=== PATIENT | female | born 1965 | race Caucasian/White ===

== ENCOUNTER 2016-12-17 16:53 | Emergency (ER) | payer OTHER ==
[~2016-12-17] VITALS: Ht 154.9 cm; Wt 48.0 kg
[~2016-12-17 16:53] MED LIST: BACTRIM DS1 TAB PO; DOXYCYCL HYC100 MG PO; FLUOXETINE10 M2 PO; NORCO1 TA1 PO; OXYBUTYNIN5 M1 PO; PERCOCET 5/325M1 TAB PO; PROTONIX40 M2 PO; PROZAC20 MG PO; TRAZODONE100 MG PO; TRAZODONE50 MG PO; ZOFRAN4 MG/TAB PO
[2016-12-17] MEDS ORDERED: DITROPAN XL5 MG PO (17:02)
[2016-12-17] MEDS ORDERED: TRAZODONE100 MG PO (17:03)
[2016-12-17] MEDS ORDERED: BUSPAR30 MG PO (17:03)
[2016-12-17 18:31] LABS: HEMATOCRIT 33.2 % (37.0-47.0); IMMATURE GRANULOCYTES 0.2 % (0.0-1.0); MEAN CELL VOLUME 95.4 fL CALC (80.0-100.0); MEAN CORPUSCULAR HGB 34.5 pG CALC (26.0-32.0); MEAN CORPUSCULAR HGB CONC 36.1 g/L CALC (32.0-36.0); NEUT# 2.03 thou/uL (2.00-7.15); RED BLOOD COUNT 3.48 mill/uL (4.20-5.60); RED CELL DISTRI WIDTH 14.8 % (11.5-15.5)
[2016-12-17 18:32] LABS: URINE BILIRUBIN - DIPSTICK NEGATIVE (NEGATIVE); URINE BLOOD DIPSTICK TRACE-LYSED (NEGATIVE); URINE CLARITY SLIGHT CLOUDY; URINE COLOR YELLOW; URINE GLUCOSE - DIPSTICK NEGATIVE (NEGATIVE); URINE KETONE NEGATIVE (NEGATIVE); URINE LEUK ESTERASE NEGATIVE (NEGATIVE); URINE NITRITE - DIPSTICK NEGATIVE (Negative); URINE PROTEIN - DIPSTICK NEGATIVE (NEG-TRACE); URINE SPECIFIC GRAVITY 1.025
[2016-12-17 19:18] LABS: ALBUMIN 3.9 g/dL (3.2-5.0); ALKALINE PHOSPHATASE 93 u/l (38-126); ANION GAP 13 (6-22 (CALC)); BILIRUBIN, TOTAL 1.1 mg/dL (0.0-1.4); BUN 19 mg/dL (7-17); BUN/CREATININE RATIO 21 (12-20 (CALC)); CALCIUM 9.3 mg/dL (8.4-10.2); CARBON DIOXIDE 26 mmol/l (22-30); CHLORIDE 105 mmol/l (95-108); CREATININE 0.9 mg/dL (0.5-1.0); GFR > 60 ML/MIN (>=60 (CALC)); GFR FOR AFR.AMER. > 60 ML/MIN (>=60 (CALC)); GLUCOSE 95 mg/dL (65-105); POTASSIUM 4.4 mmol/l (3.5-5.1); SGOT/AST 59 u/l (14-36); SGPT/ALT 51 u/l (9-52); SODIUM 140 mmol/l (137-146); TOTAL PROTEIN 7.5 g/dL (6.3-8.2)
[2016-12-17] MEDS ORDERED: ULTRAM50 M1 PO (19:21)
[2016-12-17 19:30] LABS: MYOGLOBIN 40 ng/mL (0 - 62)
[2016-12-17 19:58] VITALS: BP 151/65
== END 2016-12-17 19:58 | disposition home or self-care (01) | DRG 563 ==
LOC: ED 16:53
PROVIDERS: Emergency Medicine
DX: S83.92XA Sprain of unspecified site of left knee, initial encounter (principal); K74.60 Unspecified cirrhosis of liver; R00.1 Bradycardia, unspecified; S80.212A Abrasion, left knee, initial encounter; F32.9 Major depressive disorder, single episode, unspecified; F41.9 Anxiety disorder, unspecified; H35.52 Pigmentary retinal dystrophy; H91.90 Unspecified hearing loss, unspecified ear; F17.210 Nicotine dependence, cigarettes, uncomplicated; W01.0XXA Fall on same level from slipping, tripping and stumbling without subsequent striking against object, initial encounter; Y93.01 Activity, walking, marching and hiking; Y92.830 Public park as the place of occurrence of the external cause

== ENCOUNTER 2018-12-10 10:32 | Emergency (ER) | payer OTHER ==
[~2018-12-10] VITALS: Ht 154.9 cm; Wt 59.1 kg
[~2018-12-10 10:32] MED LIST changes: +BUSPAR30 MG PO; +DITROPAN XL5 MG PO; +ULTRAM50 M1 PO
[2018-12-10 11:20] VITALS: BP 108/55
== END 2018-12-10 11:48 | disposition home or self-care (01) ==
LOC: ED 10:32
DX: S60.470A Other superficial bite of right index finger, initial encounter (principal); K74.60 Unspecified cirrhosis of liver; F17.210 Nicotine dependence, cigarettes, uncomplicated; W54.0XXA Bitten by dog, initial encounter; Y93.89 Activity, other specified; Y92.009 Unspecified place in unspecified non-institutional (private) residence as the place of occurrence of the external cause

== ENCOUNTER 2019-08-09 | Emergency (ER) | payer OTHER | END 2019-08-09 23:00 | disposition home or self-care (01) | DX: R68.84 Jaw pain (principal); K08.109 Complete loss of teeth, unspecified cause, unspecified class; K74.60 Unspecified cirrhosis of liver; F17.210 Nicotine dependence, cigarettes, uncomplicated ==

== ENCOUNTER 2020-10-26 22:22 | Emergency (ER) | payer OTHER ==
[~2020-10-26] VITALS: Ht 154.9 cm; Wt 59.0 kg
[2020-10-26 22:59] LABS: HEMATOCRIT 40.8 % (37.0-47.0); HEMOGLOBIN 13.8 g/dl (12.0-16.0); IMMATURE GRANULOCYTES 0.3 % (0.0-5.0); MEAN CELL VOLUME 98.3 fL CALC (80.0-100.0); MEAN CORPUSCULAR HGB 33.3 pG CALC (26.0-32.0); MEAN CORPUSCULAR HGB CONC 33.8 g/dL CAL (32.0-36.0); NEUT# 5.61 thou/uL (2.00-7.15); RED BLOOD COUNT 4.15 mill/uL (4.20-5.60); RED CELL DISTRI WIDTH 14.6 % (11.5-15.5)
[2020-10-26 23:11] LABS: BILIRUBIN, TOTAL 0.9 mg/dL (0.0-1.4); CREATININE 1.5 mg/dL (0.5-1.0); POTASSIUM 4.2 mmol/l (3.5-5.1)
[2020-10-27] MEDS ORDERED: PHENERGAN25 MG/TAB PO (00:46)
[2020-10-27 00:55] LABS: URINE BILIRUBIN - DIPSTICK NEGATIVE (NEGATIVE); URINE BLOOD DIPSTICK NEGATIVE (NEGATIVE); URINE COLOR YELLOW; URINE GLUCOSE - DIPSTICK NEGATIVE (NEGATIVE); URINE KETONE NEGATIVE (NEGATIVE); URINE LEUK ESTERASE NEGATIVE (NEGATIVE); URINE NITRITE - DIPSTICK NEGATIVE (Negative); URINE PH 5.5 (4.5-8.0); URINE PROTEIN - DIPSTICK NEGATIVE (NEG-TRACE); URINE SPECIFIC GRAVITY >=1.030
[2020-10-27 01:04] VITALS: BP 131/60
== END 2020-10-27 01:06 | disposition home or self-care (01) ==
LOC: ED 22:22
PROVIDERS: Family Medicine
DX: K52.9 Noninfective gastroenteritis and colitis, unspecified (principal); K80.20 Calculus of gallbladder without cholecystitis without obstruction; K74.69 Other cirrhosis of liver; F17.210 Nicotine dependence, cigarettes, uncomplicated

== ENCOUNTER 2021-05-26 14:53 | Emergency (ER) | payer OTHER ==
[~2021-05-26] VITALS: Ht 154.9 cm; Wt 70.0 kg
[~2021-05-26 14:53] MED LIST changes: +PHENERGAN25 MG/TAB PO
[2021-05-26 16:54] VITALS: BP 115/56
[2021-05-26] MEDS ORDERED: ULTRAM50 MG PO (17:56)
== END 2021-05-26 18:10 | disposition home or self-care (01) ==
LOC: ED 14:53
DX: S93.601A Unspecified sprain of right foot, initial encounter (principal); K74.60 Unspecified cirrhosis of liver; F17.210 Nicotine dependence, cigarettes, uncomplicated; X50.0XXA Overexertion from strenuous movement or load, initial encounter

== ENCOUNTER 2022-01-30 10:13 | Emergency (ER) | payer OTHER ==
[~2022-01-30] VITALS: Ht 154.9 cm; Wt 59.0 kg
[~2022-01-30 10:13] MED LIST changes: +ULTRAM50 MG PO
[2022-01-30 10:20] VITALS: BP 100/62
[2022-01-30 10:31] VITALS: BP 102/53
[2022-01-30] MEDS ORDERED: MUPIROCIN21 TOP (10:41)
[2022-01-30] MEDS ORDERED: DOXY-CAPS100 MG PO (10:41)
== END 2022-01-30 10:52 | disposition home or self-care (01) ==
LOC: ED 10:13
DX: L03.114 Cellulitis of left upper limb (principal); K74.60 Unspecified cirrhosis of liver; F17.210 Nicotine dependence, cigarettes, uncomplicated; B95.62 Methicillin resistant Staphylococcus aureus infection as the cause of diseases classified elsewhere

== ENCOUNTER 2024-03-11 19:10 | Observation (INO) | payer OTHER ==
[~2024-03-11] VITALS: Ht 154.9 cm; Wt 52.6 kg
[~2024-03-11 19:10] MED LIST changes: +DOXY-CAPS100 MG PO; +MUPIROCIN21 TOP
[2024-03-11] MEDS ORDERED: ONDANSETRON HCl 4 MG/2 ML SDV IV ONE (19:35)
[2024-03-11] MEDS ORDERED: DiphenhydrAMINE HCL 50 MG/ML SDV IV ONE (19:35)
[2024-03-11] MEDS ORDERED: METOCLOPRAMIDE HCL 10 MG/2 ML SDV IV ONE (19:35)
[2024-03-11] MEDS ORDERED: SODIUM CHLORIDE 0.9% 1,000 ML IV ONE ×2 (19:35→23:00)
[2024-03-11 19:39] LABS: BASO% 0.1 % (0-3); EOS% 1.7 % (0-8); HEMATOCRIT 36.6 % (37.0-47.0); HEMOGLOBIN 12.2 g/dl (12.0-16.0); IMMATURE GRANULOCYTES 0.3 % (0.0-5.0); LYMPH% 18.8 % (15-41); MEAN CELL VOLUME 102.2 fL CALC (80.0-100.0); MEAN CORPUSCULAR HGB 34.1 pG CALC (26.0-32.0); MEAN CORPUSCULAR HGB CONC 33.3 g/dL CAL (32.0-36.0); MONO% 9.7 % (2-13); NEUT# 6.5 thou/uL (2.00-7.15); NEUT% 69.4 % (42-76); RED BLOOD COUNT 3.58 mill/uL (4.20-5.60); RED CELL DISTRI WIDTH 14.9 % (11.5-15.5)
[2024-03-11 19:39] LABS: URINE BLOOD DIPSTICK Negative (NEGATIVE); URINE GLUCOSE - DIPSTICK Negative (NEGATIVE); URINE KETONE Negative (NEGATIVE); URINE LEUK ESTERASE Negative (NEGATIVE); URINE PROTEIN - DIPSTICK 30 mg/dL (NEG-TRACE); URINE SPECIFIC GRAVITY 1.025; URINE UROBILINOGEN - DIPSTICK >=8.0 E.U./dL (0.2)
[2024-03-11 19:43] LABS: URINE COLOR Amber; URINE NITRITE - DIPSTICK Positive (Negative)
[2024-03-11 19:45] LABS: URINE SQUAMOUS EPITHELIAL CELL FEW EPI/hpf (0-FEW)
[2024-03-11 19:46] LABS: URINE BACTERIA FEW hpf; URINE CALCIUM OXALATE CRYSTALS MANY lpf
[2024-03-11 19:47] LABS: ALBUMIN 3.3 g/dL (3.2-5.0); ALKALINE PHOSPHATASE 148 u/l (38-126); ANION GAP 6 (6-22 (CALC)); BUN 23 mg/dL (7-17); BUN/CREATININE RATIO 20 (12-20 (CALC)); CARBON DIOXIDE 26 mmol/l (22-30); CHLORIDE 108 mmol/l (95-108); CREATININE 1.1 mg/dL (0.5-1.0); ESTIMATED GFR 58 ML/MIN (>=90 (CALC)); LIPASE 188 u/l (23-300); POTASSIUM 3.7 mmol/l (3.5-5.1); SODIUM 136 mmol/l (137-146)
[2024-03-11 19:49] LABS: BILIRUBIN, TOTAL 1.6 mg/dL (0.02-1.3); SGOT/AST 187 u/l (14-36)
[2024-03-11] MEDS ORDERED: Levofloxacin 500 mg Premix 100 ML IV ONE (20:15)
[2024-03-11 22:03] VITALS: BP 115/45
[2024-03-11 23:00] VITALS: BP 101/55
[2024-03-12] VITALS: BP 125/60
[2024-03-12] MEDS ORDERED: MORPHINE SULFATE 4 MG/ML VIAL IV PRN (01:00)
[2024-03-12] MEDS ORDERED: ONDANSETRON HCl 4 MG/2 ML SDV IV PRN (01:00)
[2024-03-12] MEDS ORDERED: ACETAMINOPHEN 500 MG TAB PO PRN (01:00)
[2024-03-12 03:47] VITALS: BP 123/51
[2024-03-12 07:20] VITALS: BP 105/51
[2024-03-12] MEDS ORDERED: SODIUM CHLORIDE 0.9% 1,000 ML IV PRN (07:45)
[2024-03-12] MEDS ORDERED: MAGNESIUM HYDROXIDE 30 ML UDC PO PRN (07:45)
[2024-03-12 08:56] LABS: ALBUMIN 2.7 g/dL (3.2-5.0); BILIRUBIN, TOTAL 1.4 mg/dL (0.02-1.3); CREATININE 1.1 mg/dL (0.5-1.0); POTASSIUM 3.9 mmol/l (3.5-5.1); TOTAL PROTEIN 5.9 g/dL (6.3-8.2)
[2024-03-12] MEDS ORDERED: KETOROLAC TROMETHAMINE 15 MG/ML SDV IV PRN (12:15)
[2024-03-12] MEDS ORDERED: Heparin SODIUM (Porcine) 5,000 UNITS/ML SDV SC SCH (14:00)
[2024-03-12 15:07] VITALS: BP 106/48
[2024-03-12 18:23] VITALS: BP 112/55
[2024-03-12] MEDS ORDERED: Levofloxacin 750 mg Premix 150 ML IV SCH (20:00)
[2024-03-13 04:48] VITALS: BP 138/60
[2024-03-13 05:34] LABS: BASO% 0.3 % (0-3); EOS% 3.6 % (0-8); HEMATOCRIT 31.1 % (37.0-47.0); HEMOGLOBIN 10.5 g/dl (12.0-16.0); IMMATURE GRANULOCYTES 0.3 % (0.0-5.0); LYMPH% 17.6 % (15-41); MEAN CORPUSCULAR HGB 34.8 pG CALC (26.0-32.0); MEAN CORPUSCULAR HGB CONC 33.8 g/dL CAL (32.0-36.0); MONO% 8.9 % (2-13); NEUT# 4.83 thou/uL (2.00-7.15); NEUT% 69.3 % (42-76); RED BLOOD COUNT 3.02 mill/uL (4.20-5.60); RED CELL DISTRI WIDTH 14.8 % (11.5-15.5)
[2024-03-13 05:45] LABS: ALBUMIN 2.4 g/dL (3.2-5.0); BILIRUBIN, TOTAL 1.8 mg/dL (0.02-1.3); TOTAL PROTEIN 5.5 g/dL (6.3-8.2)
[2024-03-13 07:30] VITALS: BP 107/56
[2024-03-13] MEDS ORDERED: MOTRIN400 MG/TAB PO (11:31)
== END 2024-03-13 13:20 | disposition home or self-care (01) ==
LOC: ED 19:10 → ED-I 03-12 00:47 → ED 03-12 01:01 → MS2 03-12 01:02
PROVIDERS: Emergency Medicine; Nurse Practitioner Family; ADMIT Student in an Organized Health Care Education/Training Program; ATTEND Student in an Organized Health Care Education/Training Program
DX: K76.9 Liver disease, unspecified (principal); N13.2 Hydronephrosis with renal and ureteral calculous obstruction; N18.9 Chronic kidney disease, unspecified; K74.69 Other cirrhosis of liver; F17.200 Nicotine dependence, unspecified, uncomplicated; H91.90 Unspecified hearing loss, unspecified ear; H35.52 Pigmentary retinal dystrophy; Z88.0 Allergy status to penicillin; Z87.442 Personal history of urinary calculi
CPT/HCPCS: G0378; J1956; Q9967